=== PATIENT | male | born 1955 | race Caucasian/White ===

== ENCOUNTER 2020-11-17 12:14 | Inpatient (IN) | payer OTHER ==
[~2020-11-17] VITALS: Ht 170.2 cm; Wt 81.6 kg
[2020-11-20] MEDS ORDERED: CANDESARTAN CIL32 MG (08:26)
[2020-11-20] MEDS ORDERED: AMLODIPINE BESYL5 MG (08:26)
[2020-11-20] MEDS ORDERED: ATORVASTATIN CA40 MG (08:26)
[2020-11-21] MEDS ORDERED: FLAGYL500MG PO (17:20)
[2020-11-21] MEDS ORDERED: AMLODIPINE BESYL5 MG PO (17:20)
[2020-11-21] MEDS ORDERED: PEPCID AC20 MG PO (17:20)
[2020-11-21] MEDS ORDERED: LIPITOR40 MG PO (17:20)
[2020-11-21] MEDS ORDERED: CIPRO500 MG PO (17:20)
[2020-11-21] MEDS ORDERED: PROTONIX40 MG PO (17:20)
[2020-11-21] MEDS ORDERED: INTESTINEX680 M1 PO (17:20)
== END 2020-11-21 17:45 | disposition home or self-care (01) | DRG 392 ==
LOC: ER 12:14 → MEDI 11-18 13:11
PROVIDERS: ADMIT Internal Medicine; ATTEND Internal Medicine
PROC: 8E0ZXY6 Isolation (ICD-10-PCS; principal; 2020-11-18)
DX: K52.9 Noninfective gastroenteritis and colitis, unspecified (principal); N17.8 Other acute kidney failure; I10 Essential (primary) hypertension; E86.0 Dehydration; N28.1 Cyst of kidney, acquired; K57.30 Diverticulosis of large intestine without perforation or abscess without bleeding